=== PATIENT | female | born 1980 | race American Indian/Alaskan Native ===

== ENCOUNTER 2017-03-22 13:25 | Emergency (ER) | payer MEDICAID ==
[2017-03-22 17:29] LABS: Bilirubin,Urine NEG (Negative); Blood,Urine NEG (Negative); Ketones,Urine NEG (Negative); Leukocyte Esterase,Urine NEG (Negative); Mucus,Urine 3+ /HPF; Nitrite,Urine NEG (Negative); Protein,Urine <15 mg/dL mg/dL (Negative); Urobilinogen,Urine < 2.0 mg/dL (<2.0)
--- NOTE | 2017-03-22 17:54 | Emergency Department Report ---
HPI - General Chief Complaint: Urogenital-Female Time Seen by Provider: 03/22/17 17:41 - HPI HPI: this is a 36-year-old female with a history of dyspareunia times several years since he is complaining of lower pelvic pain and vaginal discharge. Patient states vaginal discharge is whitish with different odor. 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 PAIN Other details as noted in HPI Constitutional: denies: chills, fever Eyes: denies: eye pain, eye discharge, vision change ENT: denies: ear pain, throat pain Respiratory: denies: cough, shortness of breath, wheezing Cardiovascular: denies: chest pain, palpitations Endocrine: no symptoms reported Gastrointestinal: denies: abdominal pain, nausea, vomiting, diarrhea Genitourinary: denies: urgency, dysuria, frequency, hematuria, discharge Musculoskeletal: denies: back pain, joint swelling, arthralgia Skin: denies: rash, lesions, pruritus Neurological: denies: headache, weakness, paresthesias Psychiatric: denies: anxiety, depression Hematological/Lymphatic: denies: easy bleeding, easy bruising Physical Exam - Physical Exam Vital Signs: Vital Signs 03/22/17 13:34 Temperature 98.5 F Pulse Rate 83 Respiratory 18 Rate Blood Pressure 144/82 O2 Sat by Pulse 98 Oximetry Physical Exam: GENERAL: Alert and oriented x3, no apparent distress, Normal Gait, atraumatic. HEAD: Head is normocephalic and a-traumatic. LUNGS: Symetrical with respiration, No wheezing, no rales or crackles, CTAB. HEART: S1, S2 present, regular rate and rhythm without murmur, no rubs, no gallops. Non tender to palpation ABDOMEN: No organomegaly was noted,Positive bowel sounds, soft, and non- distended. . Nontender to palpation on all Quadrants, NO CVA tenderness. BACK: Full range of motion, no spinal tenderness, nontender to palpation. GENITOURINARY: External genitalia without erythema, exudate or discharge. Vaginal vault is without discharge. Cervix is of normal color without lesion. Cervical os is closed. No bleeding noted. Uterus is noted to be of normal size and nontender. No cervical motion tenderness. No masses are palpated. The adnexa are without masses or tenderness. PSYCHIATRIC: Mood is congruent with affect SKIN: Warm and dry, No lesions, No ulceration or induration present. ED Course Vital Signs 03/22/17 13:34 Temperature 98.5 F Pulse Rate 83 Respiratory 18 Rate Blood Pressure 144/82 O2 Sat by Pulse 98 Oximetry ED Medical Decision Making - Medical Decision Making 36-year-old female presents with pelvic pain ED course: Urinalysis, wet prep, gonorrhea and Chlamydia cultures sent Analysis is negative, wet prep negative I discussed this findings with the patient. I discussed the patient is sitting cultures will return sooner to 3 days and can call back for results. I discussed the patient to follow up with [facility] physician. Prior to discharge patient's blood pressure was elevated the patient is asymptomatic with no chest pain or any other symptoms I discussed the patient to monitor her blood pressure daily and follow up with her primary care physician to be assessed for elevated blood pressure and assessment for hypertension All other Vital signs are normal , she states she understands instructions and will do as instructed - Differential Diagnosis 1. Endometriosis 2. STD 3.Urinary tract infection. Critical care attestation.: If time is entered above; I have spent that time in minutes in the direct care of this critically ill patient, excluding procedure time. ED Disposition Clinical Impression: Pelvic pain Disposition: DC-01 TO HOME OR SELFCARE Is pt being admited?: No Does the pt Need Aspirin: No Condition: Stable Instructions: Chronic Pelvic Pain in Women (ED), Heat Pack Application (ED) Additional Instructions: Make sure to follow up with the primary care physician as discussed. Take all your medications as you've been prescribed. If you have any worsening symptoms or develop new symptoms please return to ED immediately. Prescriptions: Ibuprofen [Motrin] 800 mg PO Q8HR PRN #30 tablet PRN Reason: Pain traMADol [Ultram] 50 mg PO Q6HR PRN #20 tablet PRN Reason: Pain Referrals: PRIMARY CARE, [Primary Care Provider] - 3-5 Days [facility] [Outside] - 3-5 Days [facility] [Outside] - 3-5 Days Forms: Accompanied Note, Work/School Release Form(ED) Time of Disposition: 18:59
[2017-03-22 22:57] VITALS: BP 169/106
== END 2017-03-22 19:30 | disposition home or self-care (01) ==
LOC: EDSEX 13:25 → ED 13:25
DX: R10.2 Pelvic and perineal pain (principal); F17.200 Nicotine dependence, unspecified, uncomplicated
CPT/HCPCS: 81001; 87210; 87591